=== PATIENT | female | born 1980 | race Caucasian/White ===

== ENCOUNTER 2018-04-10 09:09 | Emergency (ER) | payer BC ==
--- NOTE | 2018-04-10 10:21 | EDM.PDOC ---
ED HPI GENERAL MEDICAL PROBLEM - General Stated Complaint: DIZZY Time Seen by Provider: 04/10/18 09:30 Source of Information: Reports: Patient History Limitations: Reports: No Limitations - History of Present Illness INITIAL COMMENTS - FREE TEXT/NARRATIVE: This pleasant 1 para 1, P2,0,0,2 last menstrual period April 03 regular menstruation, uses control pills no history of hypertension. He is a nonsmoker on 04/07/18 which he turnabout all of a sudden she felt very dizzy. She went to the physical therapy for treatment yesterday. For BPPV. She' s had occasional chill slight sore throat and left ear discomfort medications. Hearing is intact. No history of head trauma fever or previous episode of BPPV - Related Data Allergies Allergy/AdvReac Type Severity Reaction Status Date / Time Sulfa (Sulfonamide Allergy Hives Verified 04/10/18 09:58 Antibiotics) sulfamethoxazole Allergy Hives Verified 04/10/18 09:58 [From Sulfamethoprim] trimethoprim Allergy Hives Verified 04/10/18 09:58 [From Sulfamethoprim] Home Meds: Home Meds Desogestrel-Ethinyl Estradiol [ 28 Day Tablet] 1 each PO DAILY 04/10/18 [ History] Fluticasone Furoate [Flonase Sensimist] 9.9 ml NS BID PRN 04/10/18 [History] Meclizine [Antivert] 25 mg PO Q6HR PRN 04/10/18 [History] Montelukast [Singulair] 10 mg PO DAILY PRN 04/10/18 [History] Multivitamin [Multi-Day Vitamins] 1 tab PO DAILY 04/10/18 [History] Omeprazole 20 mg PO DAILY 04/10/18 [History] Past Medical History Other Musculoskeletal History: Right ankle fracture 1989. ED ROS GENERAL - Review of Systems Review Of Systems: ROS reveals no pertinent complaints other than HPI. ED EXAM, GENERAL - Physical Exam Exam: See Below Free Text/Narrative:: Mildly overweight. Pleasant woman attended by her . She is moderate dizziness is reluctant to move she's laying on her right side this diminishes her left-sided sense of vertigo. Exam Limited By: No Limitations General Appearance: Alert, WD/WN, Moderate Distress Eye Exam: Bilateral Eye: Normal Inspection (No nystagmus) Ears: Normal External Exam, Normal Canal, Hearing Grossly Normal, Normal TMs Ear Exam: Bilateral Ear: Auricle Normal, Canal Normal, TM normal Nose: Normal Inspection Throat/Mouth: Normal Inspection, Normal Lips, Normal Teeth, Normal Gums, Normal Oropharynx, Normal Voice, No Airway Compromise Head: Atraumatic, Normocephalic, Other (No tenderness with pressure on the sinuses) Neck: Normal Inspection, Supple, Non-Tender, Full Range of Motion, Other (No bruits) Respiratory/Chest: No Respiratory Distress, Lungs Clear, Normal Breath Sounds, No Accessory Muscle Use, Chest Non-Tender Cardiovascular: Normal Peripheral Pulses, Regular Rate, Rhythm, No Edema, No Gallop, No JVD, No Murmur, No Rub Peripheral Pulses: 1+: Carotid (L), Carotid (R), Brachial (R), Radial (L), Dorsalis Pedis (L), Dorsalis Pedis (R) GI/Abdominal: Normal Bowel Sounds, Soft, Non-Tender, No Organomegaly, No Distention, No Abnormal Bruit, No Mass (Female) Exam: Deferred Rectal (Female) Exam: Deferred Back Exam: Normal Inspection, Full Range of Motion Extremities: Normal Inspection, Normal Range of Motion, Non-Tender, Normal Capillary Refill Neurological: Alert, Oriented, CN II-XII Intact, Normal Cognition, Normal Gait, Normal Reflexes, No Motor/Sensory Deficits Psychiatric: Normal Affect, Normal Mood Skin Exam: Warm, Dry, Intact, Normal Color Lymphatic: No Adenopathy Course - Vital Signs Last Recorded V/S: Last Vital Signs Temp 36.4 C 04/10/18 10:59 Pulse 89 04/10/18 10:59 Resp 18 04/10/18 10:59 BP 101/55 L 04/10/18 10:59 Pulse Ox 100 04/10/18 10:59 - Orders/Labs/Meds Meds: Medications Discontinued Medications Generic Name Dose Route Start Last Admin Trade Name Kentonq PRN Reason Stop Dose Admin Sodium Chloride 1,000 mls @ 999 mls/min 04/10/18 10:00 04/10/18 10:31 Normal Saline IV 999 mls/min .BOLUS CHRISTIANO Administration Ondansetron HCl 4 mg 04/10/18 10:00 04/10/18 10:31 Zofran IVPUSH 04/10/18 10:01 4 mg ONETIME ONE Administration - Re-Assessments/Exams Free Text/Narrative Re-Assessment/Exam: 04/10/18 10:22 Hallpike maneuver was performed. This exacerbated her sense of dizziness however no nystagmus demonstrated. Then Jm maneuver was performed and patient was better after 3 maneuvers (on her left side at using 1/4 turns for 45 seconds). There was occasional fast component to the left. Then Jm maneuver was performed x3 and she felt 70% better after the 2nd maneuver. End was several other maneuvers which I talked her to perform she now is down to 10% residual of vertigo sensation. When she sits up she feels a little more dizzy otherwise is no longer having to lay on her right side. She's felt much better. He was flushed with 2000 mL normal saline. Departure - Departure Time of Disposition: 10:30 (BPPV. Dramatic response to Jm maneuver. 95% of her sense of dizziness has relented. Rapid position changes of the Jm maneuver help improve the position of the otoliths.) Disposition: Home, Self-Care 01 Condition: Good Clinical Impression: BPPV (benign paroxysmal positional vertigo) Qualifiers: Laterality: left Qualified Code(s): H81.12 - Benign paroxysmal vertigo, left ear - Discharge Information *PRESCRIPTION DRUG MONITORING PROGRAM REVIEWED*: Not Applicable *COPY OF PRESCRIPTION DRUG MONITORING REPORT IN PATIENT KITTY: Not Applicable Instructions: Vertigo, [id number], Dizziness, [id number] Referrals: Lesly Hdz NP [Primary Care Provider] - Forms: ED Department Discharge Additional Instructions: Now that you know how to perform the maneuver to help decrease your dizziness, Perform this couple times a day (at least 3-4 times a day if you still have the symptoms of dizziness). Otherwise your benign paroxysmal positional vertigo has been almost cured. Do this maneuver as she needed. Continue with the meclizine as it will decrease some of the swelling in the your balance canals. If your are without vertigo after 24 hours you can stop meclizine. Follow-up with Dr. mccormack in a week as needed
[2018-04-10] MEDS: Ondansetron 4 MG/2 ML SDV IVPUSH ONE (10:31)
[2018-04-10] MEDS: Sodium Chloride 0.9% 1,000 ML IV SCH (10:31)
== END 2018-04-10 11:25 | disposition home or self-care (01) ==
LOC: FB.ED 09:09
DX: H81.12 Benign paroxysmal vertigo, left ear (principal); Z79.899 Other long term (current) drug therapy; Z88.1 Allergy status to other antibiotic agents
CPT/HCPCS: 96361; 96374; 99284; J2405; J7030